=== PATIENT | male | born 1940 | race Caucasian/White ===

== ENCOUNTER 2020-03-02 06:02 | Inpatient (IN) ==
[~2020-03-02 06:02] MED LIST: Vancomycin 1,000 MG, Sodium Chloride IRRigation 1,000 ML IR ONE
[2020-03-02] MEDS ORDERED: CeFAZolin Syr 2,000MG/20 ML 2,000 MG/20 ML SYRINGE IVPB ONE (06:15)
[2020-03-02] MEDS ORDERED: Ringers Solution, Lactated 1,000 ML IVC SCH (06:15)
[2020-03-02] MEDS ORDERED: *HR* OxyCODONE Immed Rel 5 MG TABLET PO PRN (06:51)
[2020-03-02] MEDS ORDERED: Ondansetron 4 MG/2 ML VIAL IVP PRN ×2 (06:51→12:08)
[2020-03-02] MEDS ORDERED: *HR* Labetalol 20 MG/4 ML SYRINGE IVP PRN (06:51)
[2020-03-02] MEDS ORDERED: Lidocaine -MPF 4% 5 ML AMPUL ONE (06:53)
[2020-03-02] MEDS ORDERED: Acetaminophen IV 1,000 MG/100 ML INFUS..BTL IVPB ONE (07:00)
[2020-03-02] MEDS ORDERED: Famotidine 20 MG/2 ML VIAL IVP ONE (07:00)
[2020-03-02] MEDS ORDERED: *HR* Rocuronium Bromide 50 MG/5 ML VIAL ONE ×2 (07:01→08:51)
[2020-03-02] MEDS ORDERED: *HR* Succinylcholine 200 MG/10 ML VIAL IVP ONE (07:01)
[2020-03-02] MEDS ORDERED: *HR* Propofol 200 MG/20 ML VIAL IVP ONE (07:01)
[2020-03-02] MEDS ORDERED: *HR* FentaNYL (PF) 100 MCG/2 ML VIAL ONE ×2 (07:01→10:24)
[2020-03-02] MEDS ORDERED: Ondansetron 4 MG/2 ML VIAL ONE (07:01)
[2020-03-02] MEDS ORDERED: Lidocaine -MPF 2% 2 ML VIAL ONE (07:01)
[2020-03-02] MEDS ORDERED: Dexamethasone 4 MG/ML VIAL ONE (07:01)
[2020-03-02] MEDS ORDERED: *HR* Vasopressin 20 UNIT/ML VIAL ONE (07:13)
[2020-03-02] MEDS ORDERED: Isovue-300 50ML VIAL ONE (07:25)
[2020-03-02] MEDS ORDERED: Bupivacaine-MPF 0.25% 10 ML VIAL ONE (07:25)
[2020-03-02] MEDS ORDERED: Heparin 1,000 UNITS/500 mL 500 ML ONE (07:27)
[2020-03-02] MEDS ORDERED: *HR* PHENYLEPHRINE 1,000 MCG/10 ML SYRINGE IVP ONE (08:13)
[2020-03-02] MEDS ORDERED: Heparin 1,000 UNITS/500 mL 1,000 ML ONE (08:39)
[2020-03-02] MEDS ORDERED: *HR* Heparin 5,000 UNIT/ML VIAL ONE ×2 (08:44→09:53)
[2020-03-02] MEDS ORDERED: *HR* Labetalol 20 MG/4 ML SYRINGE IVP ONE (10:26)
[2020-03-02] MEDS ORDERED: *HR* HYDROcodone/Acet 5/325 mg TABLET PO PRN (12:08)
[2020-03-02] MEDS ORDERED: Acetaminophen 325 MG TABLET PO PRN (12:08)
[2020-03-02] MEDS: 0.9 % Sodium Chloride 1,000 ML IVC SCH ×2 (12:54→23:01)
[2020-03-03 05:28] LABS: BUN/Creatinine Ratio 19 (6-26); Blood Urea Nitrogen 22 mg/dL (8-23); Carbon Dioxide 21 mEq/L (23-29); Chloride 112 mEq/L (98-107); Glucose 94 mg/dL (70-105); Osmolality,Calculated 289 (280-300); Potassium 3.9 mEq/L (3.5-5.1); Sodium 138 mEq/L (136-145); eGFR For African Americans > 60 (> 60); eGFR For Non-African Americans > 60 (> 60)
[2020-03-03 07:49] VITALS: BP 184/80
[2020-03-03] MEDS ORDERED: amLODIPine 5 MG TABLET PO SCH (09:00)
== END 2020-03-03 11:02 | disposition home or self-care (01) | DRG 675 ==
LOC: SAMDAY 06:02 → 2NNU 11:51
PROVIDERS: ADMIT Surgery Vascular Surgery; ATTEND Surgery Vascular Surgery